=== PATIENT | female | born 1960 | race Two or more races ===

== ENCOUNTER 2024-04-07 14:37 | Emergency (ER) | payer MEDICAID, OTHER ==
[~2024-04-07] VITALS: Ht 165.1 cm; Wt 59.0 kg
[2024-04-07 14:39] VITALS: BP 137/85; PULSE 87; RESP 16; TEMP 98.1; O2SAT 99
[2024-04-07] MEDS ORDERED: BUMETANIDE 2.5MG/10ML VIAL IV ONE (16:15)
[2024-04-07 16:20] LABS: HEMOGLOBIN. 14.1 g/dL (12.0-16.0); RED CELL DISTRIBUTION WIDTH 14.7 % (11.6-14.6)
[2024-04-07 16:21] LABS: CHLORIDE 109 mEq/L (98-107); SODIUM 142 mEq/L (136-145)
[2024-04-07 16:22] LABS: CALCIUM 9.6 mg/dL (8.7-10.4); CARBON DIOXIDE 26 mEq/L (21-32)
[2024-04-07 16:27] LABS: CREATININE 0.9 mg/dL (0.6-1.0); GLUCOSE 109 mg/dL (70-105); UREA NITROGEN BLOOD 16 mg/dL (9-23)
[2024-04-07 16:32] LABS: BASOPHILS % 1.4 % (0.0-2.0); EOSINOPHILS % 1.4 % (0.0-5.0); HEMATOCRIT. 43.3 % (36.0-48.0); MEAN CORPUSCULAR HEMOGLOBIN 30.8 pg (28.0-32.0); MEAN CORPUSCULAR HGB CONC 32.6 g/dL (31.0-37.0); MEAN CORPUSCULAR VOLUME 94.6 fL (81.0-99.0); MEAN PLATELET VOLUME 7.9 fl (7.4-10.4); MONOCYTES % 6.3 % (2.0-8.0); NEUTROPHILS % 72.9 % (40.0-76.0); PLATELET 357 x1000/uL (130-400); RED BLOOD CELL COUNT 4.58 mill/uL (4.2-5.4); WHITE BLOOD COUNT 5.7 x1000/uL (4.5-11.0)
[2024-04-07 16:33] LABS: TROPONIN I HIGH SENSITIVITY < 4 ng/L (3.0-34)
[2024-04-07 16:35] LABS: DIFFERENTIAL COMMENT 1
[2024-04-07 18:47] LABS: TROPONIN I HIGH SENSITIVITY < 4 ng/L (3.0-34)
[2024-04-07] MEDS ORDERED: TOPUD MT (20:03)
[2024-04-07] MEDS ORDERED: LIDOCAINE HCL 1% 20ML VIAL INFIL ONE (20:15)
== END 2024-04-07 21:07 | disposition home or self-care (01) ==
LOC: ER 14:37
DX: S06.0X0A Concussion without loss of consciousness, initial encounter (principal); S01.81XA Laceration without foreign body of other part of head, initial encounter; E78.00 Pure hypercholesterolemia, unspecified; I10 Essential (primary) hypertension; Z86.73 Personal history of transient ischemic attack (TIA), and cerebral infarction without residual deficits; W07.XXXA Fall from chair, initial encounter; Y93.89 Activity, other specified; Y92.89 Other specified places as the place of occurrence of the external cause; Y99.8 Other external cause status
CPT/HCPCS: 80048; 83880; 85025; 84484; 36415; 71045; 70450; 93005; 12015; 99285; J3490; Z7610 ×4